=== PATIENT | female | born 1990 | race Caucasian/White ===

== ENCOUNTER 2023-10-13 12:01 | Emergency (ER) | payer MEDICAID, OTHER, SELFPAY ==
[~2023-10-13] VITALS: Ht 170.2 cm; Wt 63.5 kg
[2023-10-13 13:20] LABS: BASO % 0.6 % (0.0-1.0); EOS # 0.3 10^3/uL (0.0-0.5); EOS % 4.3 % (0.0-3.0); HEMATOCRIT 38.7 % (36.0-47.0); HEMOGLOBIN 12.7 g/dl (12.0-15.5); LYMPH # 1.1 10^3/uL (1.5-5.0); LYMPH % 17.6 % (24.0-44.0); MEAN CORPUSCULAR HEMOGLOBIN 30.1 pg (27.0-33.0); MEAN CORPUSCULAR HGB CONC 32.8 g/dl (32.0-36.5); MEAN CORPUSCULAR VOLUME 91.7 fl (80.0-96.0); MONO # 0.4 10^3/uL (0.0-0.8); MONO % 5.8 % (2.0-8.0); NEUTROPHILS # 4.5 10^3/uL (1.5-8.5); NEUTROPHILS % 71.4 % (36.0-66.0); PLATELET COUNT, AUTOMATED 246 10^3/uL (150-450); RED BLOOD COUNT 4.22 10^6/uL (4.00-5.40); WHITE BLOOD COUNT 6.2 10^3/uL (4.0-10.0)
[2023-10-13 13:25] LABS: CK-MB VALUE MASS < 1.0 NG/ML (<3.6)
[2023-10-13 13:29] LABS: FREE T4 0.86 NG/DL (0.89-1.76)
[2023-10-13 13:30] LABS: THYROID STIMULATING HORMONE 1.063 uIU/ML (0.55-4.78)
[2023-10-13 13:32] LABS: ETHYL ALCOHOL (ETHANOL) < 0.003 % (0.000-0.010)
[2023-10-13 13:33] LABS: ALBUMIN 4.3 G/DL (3.2-5.2); ALKALINE PHOSPHATASE 69 U/L (46-116); ALT/SGPT 13 U/L (7.0-40); AST/SGOT 14 U/L (<34); BILIRUBIN,DIRECT 0.2 MG/DL (<0.4); BILIRUBIN,TOTAL 0.6 MG/DL (0.3-1.2); BLOOD UREA NITROGEN 11 MG/DL (9-23); CARBON DIOXIDE LEVEL 23 MMOL/L (20-31); CHLORIDE LEVEL 109 MMOL/L (98-107); CREATININE FOR GFR 0.73 MG/DL (0.55-1.30); GLOMERULAR FILTRATION RATE > 60.0 (>60); GLUCOSE, FASTING 83 MG/DL (60-100); MAGNESIUM LEVEL 2.1 MG/DL (1.8-2.4); POTASSIUM SERUM 4.3 MMOL/L (3.5-5.1); SODIUM LEVEL 141 MMOL/L (136-145); TOTAL PROTEIN 7.6 G/DL (5.7-8.2)
[2023-10-13 13:35] LABS: CPK CREATINE PHOSPHOKINASE 144 U/L (34-145); INR 1.08; MB/CK RELATIVE INDEX 0.69 (< OR =4); PARTIAL THROMBOPLASTIN TIME 27.3 SECONDS (24.8-34.2); PROTHROMBIN TIME 13.7 SECONDS (12.5-14.5)
[2023-10-13] MEDS ORDERED: DEPA250T32 PO (16:11)
[2023-10-13] MEDS: VALPROATE SOD INJ 250 MG in D5W 50 ML IV ONE (17:23)
[2023-10-13 18:35] VITALS: BP 111/72; TEMP 97.7; O2SAT 99
== END 2023-10-13 18:37 | disposition home or self-care (01) ==
LOC: EDBD 12:01 → M ED 12:01
DX: G40.89 Other seizures (principal); F95.2 Tourette's disorder; Z79.899 Other long term (current) drug therapy

== ENCOUNTER → 2024-04-24 | Outpatient (REF) | payer SELFPAY ==
[~2024-04-24] MED LIST: DEPA250T32 PO
== END ==
LOC: M LAB REF 16:08
PROVIDERS: ATTEND Physician Assistant
DX: B34.9 Viral infection, unspecified (principal)

== ENCOUNTER 2024-09-24 11:26 | Emergency (ER) | payer MEDICAID, MEDICARE, OTHER, SELFPAY ==
[~2024-09-24] VITALS: Ht 170.2 cm; Wt 74.3 kg
[2024-09-24 11:34] VITALS: BP_DIAS 61
[2024-09-24] MEDS ORDERED: NAPR-885 (12:09)
[2024-09-24 12:31] VITALS: BP_SYST 135; TEMP 97.6; O2SAT 100
[2024-09-24] MEDS ORDERED: PRED20TA PO (13:16)
[2024-09-24] MEDS ORDERED: CAPS0.022 TOP (13:16)
[2024-09-24] MEDS: KETOROLAC 30 MG/ML 1ML VIAL IM ONE (13:21)
== END 2024-09-24 14:11 | disposition home or self-care (01) ==
LOC: M ED 11:26
DX: M94.0 Chondrocostal junction syndrome [Tietze] (principal); F17.210 Nicotine dependence, cigarettes, uncomplicated; Z79.52 Long term (current) use of systemic steroids; Z79.899 Other long term (current) drug therapy
CPT/HCPCS: 96372; 99283; J1885

== ENCOUNTER 2024-10-14 09:51 | Emergency (ER) | payer OTHER ==
[~2024-10-14] VITALS: Ht 170.2 cm; Wt 67.7 kg
[~2024-10-14 09:51] MED LIST changes: +CAPS0.022 TOP; +NAPR-885; +PRED20TA PO
[2024-10-14 09:58] VITALS: BP 111/83; TEMP 98; O2SAT 100
[2024-10-14] MEDS: methocarbamoL 750 MG TAB PO ONE (11:47)
[2024-10-14] MEDS: LIDOCAINE 5% (LIDODERM) PATCH TD ONE (11:48)
[2024-10-14] MEDS: KETOROLAC 60MG 2ML VIAL IM ONE (11:57)
[2024-10-14 12:14] LABS: BASO % 0.4 % (0.0-1.0); EOS # 0.2 10^3/uL (0.0-0.5); EOS % 2.3 % (0.0-3.0); HEMATOCRIT 37.5 % (36.0-47.0); HEMOGLOBIN 12.8 g/dl (12.0-15.5); LYMPH # 1.2 10^3/uL (1.5-5.0); LYMPH % 11.4 % (24.0-44.0); MEAN CORPUSCULAR HEMOGLOBIN 30.8 pg (27.0-33.0); MEAN CORPUSCULAR HGB CONC 34.1 g/dl (32.0-36.5); MEAN CORPUSCULAR VOLUME 90.1 fl (80.0-96.0); MONO # 0.5 10^3/uL (0.0-0.8); MONO % 4.8 % (2.0-8.0); NEUTROPHILS # 8.6 10^3/uL (1.5-8.5); NEUTROPHILS % 80.7 % (36.0-66.0); PLATELET COUNT, AUTOMATED 241 10^3/uL (150-450); RED BLOOD COUNT 4.16 10^6/uL (4.00-5.40); WHITE BLOOD COUNT 10.7 10^3/uL (4.0-10.0)
[2024-10-14 12:18] LABS: ERYTHROCYTE SEDIMENTATION RATE 27 mm/hr (0-20)
[2024-10-14 12:37] LABS: BLOOD UREA NITROGEN 14 MG/DL (9-23); C REACTIVE PROTEIN QUANTITATIV < 0.50 MG/DL (<1.0); CALCIUM LEVEL 9.4 MG/DL (8.5-10.1); CARBON DIOXIDE LEVEL 22 MMOL/L (20-31); CHLORIDE LEVEL 106 MMOL/L (98-107); CREATININE FOR GFR 0.65 MG/DL (0.55-1.30); GLOMERULAR FILTRATION RATE > 60.0 (>60); GLUCOSE, FASTING 83 MG/DL (60-100); POTASSIUM SERUM 3.9 MMOL/L (3.5-5.1); SODIUM LEVEL 139 MMOL/L (136-145)
[2024-10-14 12:43] LABS: CPK CREATINE PHOSPHOKINASE 113 U/L (34-145)
[2024-10-14] MEDS ORDERED: NAPR-837 PO (13:13)
[2024-10-14] MEDS ORDERED: METH-1165 PO (13:13)
[2024-10-14] MEDS ORDERED: ASPE4PAD TOP (13:13)
== END 2024-10-14 13:33 | disposition home or self-care (01) ==
LOC: M ED 09:51 → EDBD 09:51 → M ED 13:33
DX: R07.9 Chest pain, unspecified (principal); F17.210 Nicotine dependence, cigarettes, uncomplicated; Z79.52 Long term (current) use of systemic steroids; Z79.899 Other long term (current) drug therapy
CPT/HCPCS: 80048; 82550; 85025; 85652; 86140; 96372; 99283; J1885

== ENCOUNTER → 2025-02-21 | Outpatient (CLI) | payer MEDICAID, OTHER ==
[~2025-02-21] MED LIST changes: +ASPE4PAD TOP; -DEPA250T32 PO; +DIVA-65 PO; +METH-1165 PO; +NAPR-837 PO
[2025-02-21 15:47] LABS: PLATELET COUNT, AUTOMATED 203 10^3/uL (150-450)
[2025-02-21 17:27] LABS: HIV 1&2 SCREEN NEGATIVE (NEGATIVE)
[2025-02-21 17:34] LABS: HEPATITIS C VIRUS ABY INDEX < 0.02 INDEX (<0.8)
== END ==
LOC: M PLALAB 14:10
PROVIDERS: ATTEND Obstetrics & Gynecology
DX: Z36.89 Encounter for other specified antenatal screening (principal); Z3A.22 22 weeks gestation of pregnancy

== ENCOUNTER → 2025-03-29 | Outpatient (CLI) | payer OTHER ==
[2025-03-29 14:16] LABS: PLATELET COUNT, AUTOMATED 215 10^3/uL (150-450)
[2025-03-29 14:33] LABS: GLUCOSE CHALLENGE TEST 1 HOUR 75 MG/DL (LESS THAN 140)
[2025-03-29 15:02] LABS: HIV 1&2 SCREEN NEGATIVE (NEGATIVE)
[2025-03-29 15:09] LABS: HEPATITIS C VIRUS ABY INDEX < 0.02 INDEX (<0.8)
[2025-03-29 15:16] LABS: Trichomonas vaginalis (AMP) NOT DETECTED (NEGATIVE)
[2025-03-29 15:40] LABS: GC DNA AMPLIFICATION NEGATIVE (NEGATIVE)
== END ==
LOC: M PLALAB 07:58
PROVIDERS: ATTEND Nurse Practitioner Family
DX: O09.292 Supervision of pregnancy with other poor reproductive or obstetric history, second trimester (principal); Z3A.00 Weeks of gestation of pregnancy not specified

== ENCOUNTER → 2025-04-05 | Outpatient (CLI) | payer OTHER | LOC: M RAD 08:52 | PROVIDERS: ATTEND Nurse Practitioner Family | DX: Z34.83 Encounter for supervision of other normal pregnancy, third trimester (principal) ==

== ENCOUNTER 2025-06-17 17:43 | Inpatient (IN) | payer OTHER, MEDICAID ==
[~2025-06-17] VITALS: Ht 170.2 cm; Wt 82.1 kg
[2025-06-17] MEDS ORDERED: PRENTAB9 PO (17:56)
[2025-06-17 18:02] VITALS: BP 131/80
[2025-06-17] MEDS: LR 1,000 ML IV ONE (18:49)
[2025-06-17 19:35] LABS: AMORPHOUS SEDIMENT SMALL (NEGATIVE); APPEARANCE, URINE HAZY (CLEAR); BACTERIA, URINE AUTO NEGATIVE (NEGATIVE); BILIRUBIN, URINE AUTO NEGATIVE (NEGATIVE); BLOOD, URINE BLOOD NEGATIVE (NEGATIVE); GLUCOSE, URINE (UA) AUTO NEGATIVE (NEGATIVE); KETONE, URINE AUTO NEGATIVE (NEGATIVE); LEUKOCYTE ESTERASE, URINE AUTO NEGATIVE (NEGATIVE); MUCUS, URINE SMALL (NEGATIVE); NITRITE, URINE AUTO NEGATIVE (NEGATIVE); PROTEIN, URINE AUTO NEGATIVE (NEGATIVE); RBC, URINE AUTO 1 /HPF (0-3); SPECIFIC GRAVITY URINE AUTO 1.011 (1.002-1.035); SQUAMOUS EPITHELIAL CELL UR AU 1 /HPF (0-6); UROBILINOGEN, URINE AUTO 0.2 mg/dL (0.0-2.0); WBC, URINE AUTO 0 /HPF (0-3)
[2025-06-17] MEDS ORDERED: OXYTOCIN INJ 10UNITS/ML 1ML VIAL IM PRN (20:50)
[2025-06-17] MEDS ORDERED: CARBOPROST TROMETHAMINE 250 MCG/ML AMP IM PRN (20:50)
[2025-06-17] MEDS ORDERED: METHYLERGONOVINE MALEATE 0.2 MG/ML 1 ML VIAL IM PRN (20:50)
[2025-06-17] MEDS: ceFAZolin SODIUM 2 GM in DEXTROSE 5% (D5W) ADV/MINI-BAG 50 ML IV ONE (20:50)
[2025-06-17] MEDS ORDERED: TRANEXAMIC ACID INJection 1,000 MG in NS 100 ML IV PRN (20:50)
[2025-06-17 21:10] LABS: PLATELET COUNT, AUTOMATED 196 10^3/uL (150-450)
[2025-06-17] MEDS: BICITRA 30 ML SOLN UDC PO ONE (21:33)
[2025-06-17 21:50] VITALS: BP 120/59
[2025-06-17 21:52] LABS: HIV 1&2 SCREEN NEGATIVE (NEGATIVE)
[2025-06-17] MEDS ORDERED: MORPHINE PRES-FREE INJ 10 MG/10 ML VIAL As Ordered ONE (21:52)
[2025-06-17] MEDS ORDERED: dexAMETHasone 4 MG/ML 1 ML VIAL As Ordered ONE (21:53)
[2025-06-17] MEDS ORDERED: OXYTOCIN INJ 10UNITS/ML 1ML VIAL As Ordered ONE (21:53)
[2025-06-17] MEDS ORDERED: ONDANSETRON 4MG/2ML VIAL As Ordered ONE (21:53)
[2025-06-17] MEDS ORDERED: OXYTOCIN 30UNITS IN 0.9% NaCl 500ML IV BAG IV ONE (21:54)
[2025-06-17 22:00] LABS: HEPATITIS C VIRUS ABY INDEX < 0.02 INDEX (<0.8)
[2025-06-17] MEDS ORDERED: KETOROLAC 30 MG/ML 1 ML VIAL As Ordered ONE (22:35)
[2025-06-17] MEDS ORDERED: ACETAMINOPHEN 1000MG/100ML IV BAG As Ordered ONE (22:35)
[2025-06-17] MEDS ORDERED: diphenhydrAMINE 50 MG/ML VIAL As Ordered ONE (22:58)
[2025-06-17 23:01] LABS: CORD GAS ABE V -1.7; CORD GAS HCO3 V 23.8 MMOL/L; CORD GAS O2 SAT V 82.0 %; CORD GAS PCO2 V 42.9 mmHg; CORD GAS PH V 7.362 UNITS; CORD GAS PO2 V 37.6 mmHg; CORD GAS SBC V 22.7 MMOL/L; CORD GAS TCO2 V 25.1 MMOL/L
[2025-06-17 23:02] LABS: CORD GAS ABE A -4.2; CORD GAS HCO3 A 22.9 MMOL/L; CORD GAS O2 SAT A 44.2 %; CORD GAS PCO2 A 49.3 mmHg; CORD GAS PH A 7.284 UNITS; CORD GAS PO2 A 20.6 mmHg; CORD GAS SBC A 19.7 MMOL/L; CORD GAS TCO2 A 24.4 MMOL/L
[2025-06-17] MEDS ORDERED: MIDAZOLAM INJ 2 MG/2 ML VIAL As Ordered ONE (23:02)
[2025-06-17] MEDS ORDERED: DOCUSATE SODIUM 100 MG CAPSULE PO PRN (23:25)
[2025-06-17] MEDS ORDERED: ONDANSETRON 4MG/2ML VIAL IV PRN (23:25)
[2025-06-17] MEDS ORDERED: RHOGAM 300MCG (1500IU) INJ IM SCH (23:25)
[2025-06-17] MEDS ORDERED: SIMETHICONE 80MG CHEW TAB PO PRN (23:25)
[2025-06-18] VITALS (11 sets, daily range): BP systolic 100–124; BP diastolic 53–71; TEMP 97.5; O2SAT 96–100
[2025-06-18] MEDS: LR 1,000 ML IV SCH (01:50)
[2025-06-18] MEDS: KETOROLAC 30 MG/ML 1 ML VIAL IV SCH (04:24)
[2025-06-18] MEDS: DOCUSATE SODIUM 100 MG CAPSULE PO SCH (08:14)
[2025-06-18] MEDS: PRENATAL VITAMINS CHEWABLE TABLET PO SCH (08:14)
[2025-06-18 08:40] LABS: PLATELET COUNT, AUTOMATED 176 10^3/uL (150-450)
[2025-06-18] MEDS: ACETAMINOPHEN 500 MG TAB PO PRN (09:08)
[2025-06-19] MEDS: IBUPROFEN 800 MG TAB PO SCH (00:12)
[2025-06-19 01:55] VITALS: BP 116/62; O2SAT 98
[2025-06-19 05:28] VITALS: BP 117/68; O2SAT 98
[2025-06-19] MEDS ORDERED: MEASLES,MUMPS,RUBELLA VACCINE INJ (MMR-II) SC.IMMUN ONE (09:00)
[2025-06-19 10:00] VITALS: BP 120/57; O2SAT 99
[2025-06-19 14:00] VITALS: BP 123/67; O2SAT 100
== END 2025-06-19 17:15 | disposition home or self-care (01) | DRG 540 ==
LOC: M LDO 17:43 → M LDI 20:53 → M OBS 06-18 01:12
PROVIDERS: ADMIT Advanced Practice Midwife; ATTEND Obstetrics & Gynecology
PROC: 10D00Z1 Extraction of Products of Conception, Low, Open Approach (ICD-10-PCS; principal; 2025-06-17 22:00)
DX: O34.211 Maternal care for low transverse scar from previous cesarean delivery (principal); F84.0 Autistic disorder; O75.82 Onset (spontaneous) of labor after 37 completed weeks of gestation but before 39 completed weeks gestation, with delivery by (planned) cesarean section; Z3A.37 37 weeks gestation of pregnancy; Z37.0 Single live birth; O99.344 Other mental disorders complicating childbirth